=== PATIENT | female | born 1935 | race Caucasian/White ===

== ENCOUNTER 2025-02-07 10:29 | Emergency (ER) | payer MEDICARE, OTHER ==
[~2025-02-07] VITALS: Ht 167.6 cm; Wt 54.0 kg
[2025-02-07 10:34] VITALS: TEMP 97.8
[2025-02-07 11:05] LABS: COVID AG,FIA SOURCE NASAL SWAB
[2025-02-07 11:34] LABS: INFLUENZA TYPE B NEGATIVE FOR TYPE B (NEGATIVE)
[2025-02-07 11:41] LABS: INFLUENZA TYPE A POSITIVE FOR TYPE A (NEGATIVE)
[2025-02-07 11:45] LABS: SARS-COV2 (COVID) ANTIGEN,FIA Negative (Negative)
[2025-02-07] MEDS ORDERED: OSEL75CA45 PO (12:36)
[2025-02-07 12:39] VITALS: BP 147/69; PULSE 60; RESP 18; O2SAT 98
== END 2025-02-07 12:48 | disposition home or self-care (01) ==
LOC: EMS 10:29
DX: J11.1 Influenza due to unidentified influenza virus with other respiratory manifestations (principal); E03.9 Hypothyroidism, unspecified; Z96.649 Presence of unspecified artificial hip joint; Z20.822 Contact with and (suspected) exposure to COVID-19
CPT/HCPCS: 87804; 99283